=== PATIENT | female | born 1950 | race Hispanic/Latino ===

== ENCOUNTER 2017-03-09 06:52 | Day surgery (SDC) | payer MEDICARE ==
[~2017-03-09] VITALS: Ht 152.4 cm; Wt 100.8 kg
[~2017-03-09 06:52] MED LIST: AMLO10TA2 PO; DULA1.5P SQ; FOLI1TAB15 PO; HYDR12.54 PO; HYDR200T4 PO; INSU100I24 SQ; LEVO50TA11 PO; LOSA100T2 PO; METF10004 PO; METH1VIA6 IJ; PANT40TA25 PO; PILO15DR48 OU; PRAV20TA4 PO; TRAM50TA4 PO
[2017-03-09] MEDS ORDERED: SODIUM CHLORIDE 0.9% 1000ML 1,000 ML IV ONE (06:57)
[2017-03-09 07:15] VITALS: BP 147/73
[2017-03-09] MEDS ORDERED: PROPOFOL 10 MG/ML 20ML VIAL IV ONE (08:29)
== END 2017-03-09 09:10 ==
LOC: DAH 06:52
PROVIDERS: ATTEND Internal Medicine Gastroenterology
DX: K21.9 Gastro-esophageal reflux disease without esophagitis (principal); K44.9 Diaphragmatic hernia without obstruction or gangrene; I10 Essential (primary) hypertension; E11.9 Type 2 diabetes mellitus without complications; D64.9 Anemia, unspecified; Z94.0 Kidney transplant status; M06.9 Rheumatoid arthritis, unspecified
CPT/HCPCS: 43235; 82948 ×2; 93005; A4606; J2704; J7030; G9654